=== PATIENT | male | born 1980 | race Caucasian/White ===

== ENCOUNTER 2019-09-12 02:13 | Emergency (ER) | payer OTHER ==
[~2019-09-12] VITALS: Ht 182.9 cm; Wt 93.0 kg
[2019-09-12] MEDS ORDERED: SERTRALINE HCL100 MG PO (02:21)
[2019-09-12 02:39] LABS: ABSOLUTE BASOPHILS 0.1 thou/uL (0.0-0.2); ABSOLUTE EOSINOPHILS 0.2 thou/uL (0.0-0.7); ABSOLUTE LYMPHOCYTES 4.1 thou/uL (0.8-5.3); ABSOLUTE NEUTROPHILS 7.2 thou/uL (1.6-8.1); BASOPHILS 0.6 %; EOSINOPHILS 1.4 %; HEMATOCRIT 46.4 % (42.0-52.0); HEMOGLOBIN 16.3 gm/dL (14.0-18.0); LYMPHOCYTES 32.5 %; MCH 31.3 pg (26.0-34.0); MCHC 35.1 g/dL (28.0-37.0); MCV 89.1 fL (80.0-100.0); MONOCYTES 7.7 %; MPV 7.2 fl. (7.2-11.1); NUCLEATED RBCS 0 /100WBC; PLATELET COUNT* 343 thou/uL (150-400); POLYS 57.8 %; RDW-CV 12.5 % (10.5-14.5); WBC 12.5 thou/uL (4.0-11.0)
[2019-09-12 02:42] LABS: POTASSIUM 3.1 mmol/L (3.5-5.1)
[2019-09-12 02:46] LABS: PROTIME 9.9 Seconds (9.20-11.50)
[2019-09-12 02:50] LABS: ALBUMIN 3.9 g/dL (3.4-5.0); TOTAL BILIRUBIN 0.6 mg/dL (<0.1-1.0); TOTAL PROTEIN 7.3 g/dL (6.4-8.2)
[2019-09-12 05:25] LABS: URINE BILIRUBIN NEGATIVE (Negative); URINE BLOOD TRACE (Negative); URINE CLARITY CLEAR; URINE COLOR YELLOW; URINE GLUCOSE-RANDOM NEGATIVE (Negative); URINE KETONES NEGATIVE (Negative); URINE LEUKOCYTES-REFLEX NEGATIVE (Negative); URINE NITRITE-REFLEX NEGATIVE (Negative); URINE PROTEIN NEGATIVE (Negative); URINE UROBILINOGEN 0.2 E.U./dl (0.2-1.0)
[2019-09-12 05:39] LABS: AMP/METHAMP Negative (Negative); BARBITURATES Negative (Negative); BENZODIAZEPINES Negative (Negative); COCAINE Negative (Negative); METHADONE Negative (Negative); OPIATES Negative (Negative); PCP Negative (Negative); THC POSITIVE (Negative)
[2019-09-12 06:00] VITALS: BP 146/98
[2019-09-12] MEDS ORDERED: XANAX 1 MG TABLE1 MG PO (06:12)
--- NOTE | 2019-09-12 11:00 | EKG ---
[place] [address] ELECTROCARDIOGRAM REPORT Name: BRIAN LOREDO Room: [facility]#: [id number] Admission: 09/12/19 Attend Phys: Discharge: Date of : 80 Report #: [id number] THIS REPORT FOR: //name// [facility] ED Test Date: 2019-09-12 Test Time: 02:17:41 Pat Name: BRIAN LOREDO Department: Room: Gender: M Legal Assistant: [place] : 1980 Requested By: Meaghan Young Order Number: [id number] MD: Brian Draper Measurements Intervals [place] Rate: 96 P: IN: QRS: 22 QRSD: 80 T: 41 QT: 331 QTc: 419 Interpretive Statements sinus rhythm artifact noted RSR' in V1 or V2, probably normal variant No previous ECG available for comparison Electronically Signed On 09-12-2019 11:00:21 [employer] by Brian Draper [email or web address] <ELECTRONICALLY SIGNED> By: Brian Draper MD, [facility] 09/12/19 1100 0217 0217 Brian Draper MD, FACC /EPI
== END 2019-09-12 06:39 | disposition home or self-care (01) ==
LOC: M.ERS 02:13
PROVIDERS: Emergency Medicine
DX: E87.6 Hypokalemia (principal); F41.0 Panic disorder [episodic paroxysmal anxiety]